=== PATIENT | male | born 1955 | race Caucasian/White ===

== ENCOUNTER → 2016-07-07 | Day surgery (SDC) | payer MEDICARE, OTHER ==
--- NOTE | 2016-06-28 23:44 | HP ---
PREOPERATIVE HISTORY AND PHYSICAL: DATE OF SURGERY/ADMISSION: 07/07/16 DATE OF OFFICE VISIT: 06/28/16 ATTENDING SURGEON: Bettina Posada MD PROCEDURE: Left thumb trigger finger release. CHIEF COMPLAINT: Left thumb triggering. HISTORY OF PRESENT ILLNESS: This is a 61-year-old male who is complaining of catching and clicking and pain in the left thumb. It started over a year ago; however, it has been worsening over the past few weeks. It is bothersome enough that he is not interested in trying a cortisone injection. He would like to proceed with surgical intervention at this time for resolution of the problem. PAST MEDICAL HISTORY: 1. Hypertension. 2. GERD. 3. Hyperlipidemia. 4. Chronic back pain. 5. Diabetes. PAST SURGICAL HISTORY: 1. Abdominal surgery. 2. Back surgery, laminectomy x2. 3. Right hip surgery x3 including a total hip arthroplasty. 4. Hernia surgery. 5. Melanoma removed. 6. Spine stimulator placed in 2015. CURRENT MEDICATIONS: 1. Amlodipine besylate 5 mg daily. 2. Atenolol 50 mg daily. 3. Duloxetine HCl 30 mg daily. 4. Metaxalone 800 mg 1 tab 3 times a day p.r.n. 5. Omeprazole 20 mg daily. 6. Gemfibrozil 600 mg b.i.d. 7. Metformin HCl ER 750 mg b.i.d. 8. Glipizide 5 mg b.i.d. 9. Gabapentin 300 mg daily. 10. Tramadol 37.5/325 mg p.r.n. pain. ALLERGIES: MORPHINE causes the patient to have shortness of breath. FAMILY MEDICAL HISTORY: Significant for cancer and arthritis. SOCIAL HISTORY: The patient is disabled from work primarily from his back issues. He denies tobacco use and illicit drug use. He does admit to alcohol use on regular occasion. REVIEW OF SYSTEMS: General: Negative for fevers, chills, or night sweats. No known anesthesia problems. HEENT: Negative for headache, lightheadedness, or syncopal episodes. Integumentary: Negative for abrasions, lesions, or open wounds. Cardiothoracic: Negative for chest pain, palpitations, or edema. Positive for hypertension. Pulmonary: Negative for shortness of breath with exertion, chronic cough, or COPD. GI: Positive for GERD. Negative for nausea , vomiting, diarrhea, or constipation. : Negative for nocturia, urinary frequency, urgency, history of UTIs, or kidney problems. Musculoskeletal: Positive for chronic back pain and current complaint. Neurological: Negative for paresthesias, numbness, history of seizures, stroke, or epilepsy. Endocrine : Positive for diabetes. Negative for thyroid issues. Hematologic: Negative for easy bruising, anemia, excessive bleeding, or history of DVT. Infectious Disease: Negative for MRSA, hepatitis C, or HIV. PHYSICAL EXAMINATION GENERAL: A well-developed, well-nourished, 61-year-old male, in no acute distress. VITAL SIGNS: Height 5 feet 10 inches, weight 234 pounds, pulse rate 78, and blood pressure 148/88. HEENT: Normocephalic, atraumatic. Pupils are equal, round and reactive to light and accommodation. Extraocular movements are intact. Throat is clear. NECK: Supple. No palpable lymph nodes. PULMONARY: Lungs are clear to auscultation bilaterally. No wheezes, rales, or rhonchi. CARDIOTHORACIC: Regular rate and rhythm. S1, S2. No murmurs, rubs, or gallops. No edema. ABDOMEN: Positive bowel sounds, soft, and nontender. NEUROLOGIC: Alert and oriented x3. Cranial nerves II through XII are intact. Sensation is intact to light touch. MUSCULOSKELETAL: On exam of his left upper extremity and thumb, he has tenderness to palpation at the A1 neida with a palpable nodule, clicking with flexion. Neurovascular function in intact. IMPRESSION: Left thumb trigger finger. PLAN: The patient is scheduled to undergo a left thumb trigger finger release with Dr. Posada on 07/07/16. He will return to the office in 10 to 14 days for postop for followup and suture removal. He has a supply of tramadol at home, which he will plan on using for postoperative pain management. WHIT COREAS [id number]/[facility] #: [id number] MTDD
[~2016-07-07] MED LIST: Acetaminophen TAB* 325 MG PO PRN; Buffered Lidocaine 1% SYR 3ML* 3 ML/SYR SYRINGE INTRADERM ONE; Buffered Lidocaine 1% SYR 3ML* 3 ML/SYR SYRINGE ONE; Ketorolac INJ* 30 MG/ML 1 ML VIAL ONE; Lidocaine 1% INJ* 10 MG/ML 30 ML SDV ONE; Lidocaine 2% PF * 5 ML VIAL ONE; Midazolam* 1 MG/ML 2 ML VIAL (2 MG) ONE; Ondansetron INJ* 2 MG/ML VIAL IV PRN; PROCHLORPERAZINE INJ 5 MG/ML 2 ML VIAL IV PRN; Propofol* 10 MG/ML 20 ML BTL IV PUSH ONE; fentaNYL* 50 MCG/ML 2 ML VIAL (100 MCG VIAL) ONE
[2016-07-07 11:02] VITALS: BP 120/78
--- NOTE | 2016-07-08 02:17 | OP ---
CC: Bettina Posada MD OPERATIVE NOTE: DATE OF OPERATION: 07/07/16 DATE OF : 57 SURGEON: Bettina Posada MD SLEEP LAB TECHNOLOGIST: WHIT Villalobos ANESTHESIA: Local MAC. PRE-OP DIAGNOSIS: Left trigger thumb. POST-OP DIAGNOSIS: Left trigger thumb. OPERATIVE PROCEDURE: Left trigger thumb release. ESTIMATED BLOOD LOSS: Zero. TOURNIQUET TIME: About 10 minutes. INDICATIONS: Otis is a 61-year-old man with locking and triggering of his left thumb. He presen ts for trigger thumb release. DESCRIPTION OF PROCEDURE: The patient was brought to the operating room, was given a sedation anest hetic and a local infiltration with 10 cc of 1% plain lidocaine at the MP flexion crease of his left thumb. The skin of his left upper extremity was prepped and draped in the usual sterile fashion. The hand and forearm were exsanguinated and the tourniquet elevated to 250 mmHg. A transverse incis ion was made centered over the A1 neida of the left thumb. We dissected bluntly through the subcut aneous tissue. The digital neurovascular bundles were retracted and the A1 neida was incised, comp letely releasing the flexor tendon which had a mild abrasion. The wound was irrigated and the skin edges reapproximated with 4-0 nylon suture. The wound was dressed with Xeroform, 4x4, Webril and an Brett wrap. The patient tolerated the procedure well and was brought to the recovery room in good co ndition. [id number]/[facility] #: [id number]
== END | disposition home or self-care (01) ==
LOC: OREAST 08:50
PROVIDERS: ATTEND Orthopaedic Surgery
PROC: 0LN80ZZ Release Left Hand Tendon, Open Approach (ICD-10-PCS; principal; 2016-07-07 10:00)
DX: M65.312 Trigger thumb, left thumb (principal); I10 Essential (primary) hypertension; K21.9 Gastro-esophageal reflux disease without esophagitis; Z85.820 Personal history of malignant melanoma of skin; Z79.84 Long term (current) use of oral hypoglycemic drugs; Z88.5 Allergy status to narcotic agent; E11.9 Type 2 diabetes mellitus without complications; E78.5 Hyperlipidemia, unspecified
CPT/HCPCS: J1885; J2250; J2704; J3010

== ENCOUNTER 2016-08-21 09:35 | Day surgery (SDC) | payer MEDICARE, OTHER ==
[~2016-08-21 09:35] MED LIST changes: -Acetaminophen TAB* 325 MG PO PRN; -Buffered Lidocaine 1% SYR 3ML* 3 ML/SYR SYRINGE ONE; -Ketorolac INJ* 30 MG/ML 1 ML VIAL ONE; -Lidocaine 1% INJ* 10 MG/ML 30 ML SDV ONE; -Lidocaine 2% PF * 5 ML VIAL ONE; -Ondansetron INJ* 2 MG/ML VIAL IV PRN; -PROCHLORPERAZINE INJ 5 MG/ML 2 ML VIAL IV PRN; -Propofol* 10 MG/ML 20 ML BTL IV PUSH ONE
[2016-08-21] MEDS ORDERED: ceFAZolin 2 GM PREMIX (*) 2 GM/50 ML BAG IVPB ONE (09:56)
[2016-08-21] MEDS ORDERED: Ketorolac INJ* 30 MG/ML 1 ML VIAL ONE (11:09)
[2016-08-21] MEDS ORDERED: Bupivacaine 0.5% W/EPI SDV* 30 ML VIAL ONE (12:10)
[2016-08-21] MEDS ORDERED: Bupivacaine 0.25% SDV* 30 ML ONE (12:32)
[2016-08-21] MEDS ORDERED: Bupivacaine 0.25% EPI 200,000* 30 ML SDV ONE (12:32)
[2016-08-21] MEDS ORDERED: Ondansetron INJ* 2 MG/ML VIAL ONE (13:06)
[2016-08-21] MEDS ORDERED: Propofol* 10 MG/ML 20 ML BTL IV PUSH ONE (13:06)
[2016-08-21] MEDS ORDERED: Lidocaine 2% PF * 5 ML VIAL ONE (13:06)
[2016-08-21] MEDS ORDERED: Succinylcholine* 20 MG/ML 10 ML VIAL ONE (13:06)
[2016-08-21] MEDS ORDERED: Dexamethasone IV* 4 MG/ML 1 ML (4 MG) ONE (13:06)
[2016-08-21] MEDS ORDERED: fentaNYL* 50 MCG/ML 2 ML VIAL (100 MCG VIAL) ONE (13:11)
[2016-08-21] MEDS ORDERED: HYDROmorphone INJ* 1 MG/ML CARPUJECT SYRINGE IV PRN (13:42)
[2016-08-21] MEDS ORDERED: fentaNYL* 50 MCG/ML 2 ML VIAL (100 MCG VIAL) IV PRN (13:42)
[2016-08-21] MEDS ORDERED: EPHEDrine (Pressors)* 50 MG/ML VIAL ONE (15:33)
[2016-08-21 18:17] VITALS: BP 133/78
--- NOTE | 2016-08-25 22:31 | OP ---
CC: PCP OPERATIVE REPORT: DATE OF OPERATION: 08/21/16 DATE OF : 57 SURGEON: Andrew Stauffer MD PUPPY WALKER: WHIT Morales ANESTHESIOLOGIST: Dr. Foster. PRE-OP DIAGNOSES: Left shoulder rotator cuff tear of the supraspinatus tendon, possible tear of the subscapularis tendon, biceps instability with tearing and impingement. POST-OP DIAGNOSES: Left shoulder rotator cuff high-grade partial thickness tear of the supraspinatus tendon, possible tear of the subscapularis tendon, biceps instability with tearing and impingement. OPERATIVE PROCEDURE: 1. Left shoulder arthroscopic rotator cuff repair in double-row fashion of supraspinatus tendon. 2. Extensive glenohumeral debridement including chondroplasty. 3. Subacromial decompression with acromioplasty. 4. Open repair of the subscapularis. 5. Open biceps tenodesis. A 22 modifier due to not only body habitus with morbid obesity and positioning of the patient, but the fact this is an extensive case requiring both an open and arthroscopic repair taking longer than typical time for repair. Implants: 5 healicoil, 3 multifix anchors by casey and nephew INDICATIONS: Otis Hidalgo is a 61-year-old male with multiple medical problems who presents with left shoulder pain that happened after a fall and a dislocation of his shoulder. He states that it was out of joint for a number of days before it went back in. He has persistent pain. He has failed conservative management. He had an MRI that demonstrated a tear of the subscapularis with a tear of the supraspinatus tendon as well biceps subluxation. After extensive discussion of risks and benefits of surgery, he has elected to proceed with operative treatment. The patient does have a chronic pain history and was supposed to get clearance and recommendations for what pain medications he could tolerate by his primary care doctor at his pain clinic. After undergoing medical risk assessment, he elected to proceed with surgery. Risks and benefits were discussed at length included but not limited to bleeding, infection, damage to nerves, vessels, surrounding structures, persistent pain, stiffness, need for further surgery, failure of the repair, worsening arthritis, risk of DVT, risk of anesthesia, and incomplete relief of symptoms. He has elected to proceed. DESCRIPTION OF PROCEDURE: The patient was greeted in the preoperative area by the attending surgeon. Correct extremity was marked and consent was confirmed. The patient was brought back to the operating suite where he underwent interscalene nerve block which he tolerated without difficulty. He then underwent general anesthesia endotracheal intubation which he tolerated quite well. The patient was then placed in the right lateral decubitus position with an axillary roll. All bony prominences were padded. His left arm was then suspended from the traction frame with 10 pounds of traction. The left shoulder was then prepped and draped in the usual sterile fashion beginning with chlorhexidine soap and alcohol wipe and a final prep with ChloraPrep. After appropriate surgical pause indicating side, site, procedure, administration of antibiotics, a standard posterolateral portal was made sharply with 11 blade and a scope was introduced into the joint and the joint was examined. There were grade 0 to 1 changes in the humeral head, grade 1 to 2 changes of unstable flaps of the glenoid. The anterior posterior labrum had mild fraying. The inferior recess was intact but there was abundant erythema and synovitis in the joint. The biceps was shredded and displaced. There was an evidence of near full thickness tear of the subscapularis involving greater than 50% of the footprint on the articular side. The undersurface of the supraspinatus tendon had high-grade partial thickness tearing. There was evidence that the supraspinatus tendon was torn fully at the most anterior insertion. The anterior portal was made in outside-in fashion. The biceps was taken through range of motion and it was then tenotomized. The stump was debrided back. The anterior posterior labrum was debrided back. A small chondroplasty was done of the glenoid to remove the unstable flap. The subscap was repaired by removing adhesions and attachments to the supraspinatus tendon. This was then mobilized and felt to be too large a tear to be fixed arthroscopically. After the intraarticular portion was completed, attention was directed to the subacromial space. The scope was placed in the subacromial space. There was abundant bursa that was present. The lateral port was made in an outside-in fashion. The shaver was used to debride this back to expose the undersurface of the acromion which had a moderate-sized spur. This was then skeletonized using the electrocautery device. A small bur was then used to do an acromioplasty. All loose debris was removed from the shoulder. The rotator cuff appeared to be intact and in good condition, although very torn at the very anterior aspect; however, this was probed and found to be quite thin. Therefore, decision was made to repair this back. The detachment was completed using an 11 blade. The edges of the rotator cuff were debrided back using a shaving device. The greater tuberosity was prepared using the rasp, the shaver , and the electrocautery device. Once this was prepared, two anchors were placed in the medial footprint. These were then passed through the tendon in a horizontal mattress configuration, which then underwent arthroscopic knot tying. Once this was secured, these were then passed through a knotless anchor for a lateral row fixation. This allowed for good repair as well as compression of the footprint. The final images were obtained and all fluid and debris were removed from the shoulder. The wounds were then closed with 3-0 nylon. Provisional dressings were applied. All sterile drapes and everything was removed and the patient was then placed in the supine position and carefully positioned so that the open portion of the surgery could be done. The shoulder was then reprepped and redraped while he was in supine position with towels placed under the scapula. After miniature surgical pause indicating side, site, procedure administration of antibiotics, the deltopectoral incision was made using a 15 blade, the soft tissues were carefully dissected. Care was taken to preserve this with hemostasis. The patient was quite large so the dissection was meticulously done. The deltopectoral groove was identified by identifying the cephalic vein. The vein was then taken laterally to expose the clavipectoral fascia. This was then sharply incised. The lateral aspect of the short head of the biceps was identified and the fascia was released to help mobilize the subscapularis tendon. Blunt dissection was then done under the conjoint tendon to allow for freeing of the adhesions of the subscap anteriorly. Curved Wiley's and blunt dissection were then used to bluntly dissect away the deltoid adhesions. Curved Hohmann retractor was placed above the coracoid as well as to retract the deltoid. This helped expose the subscap. The biceps groove was identified. This was then incised and followed up into the line to where the biceps entered the joint. Again, the biceps appears to have been tenotomized in the previous portion of the case. The subscap was identified. This was then carefully, full thickness released using electrocautery device which exposed the lesser tuberosity. Once the subscap was fully released, it was then carefully mobilized to allow for appropriate episcopalian of the tension. The lesser tuberosity was prepared using a rasp and to allow for irritated footprint. Rongeur was also used to prepare this. After this, three anchors were placed in the medial row. These were 4.75 Healicoil anchors. These were then passed to the tissue in an horizontal mattress configuration. These were then tied down. One limb from each suture was then passed through two separate footprint anchors that were placed along the bicipital groove for lateral row fixation. The remaining sutures were then passed through the biceps tendon to allow for biceps tenodesis that was tenodesed to the anchors. The excess stump was removed. The range of motion was gently assessed at this point. The wound was copiously irrigated with sterile saline. The deltopectoral interval was then closed with #2 Ti-Cron in interrupted fashion in case the patient ever needs surgery down the road. The skin was closed in layers with 2- 0 Vicryl and 3-0 Monocryl in an interrupted fashion. The wound was carefully injected with about 20 cc of 0.25% Marcaine distal on the incision. The wounds were then redressed and Cryo/Cuff was applied as well as and UltraSling. He was awoken from anesthesia and transferred to PACU in stable condition. POSTOPERATIVE PLAN: He will be nonweightbearing. He will have no external rotation for 8 weeks. He will be allowed to work on elbow, hand, and wrist range of motion as well as pendulum exercises. He will be discharged on pain medication with specifically Tylenol No.3 as well as antibiotics. DVT prophylaxis was deferred due to no previous personal or family history of DVT. I will see the patient back in 10 to 14 days. He will consult his pain physician for post operative pain control more complex than tylenol #3. [id number]/[facility] #: [id number] ROSA
== END 2016-08-21 18:18 | disposition home or self-care (01) ==
LOC: OREAST 09:35
PROVIDERS: ATTEND Orthopaedic Surgery
DX: S46.012A Strain of muscle(s) and tendon(s) of the rotator cuff of left shoulder, initial encounter (principal); M75.42 Impingement syndrome of left shoulder; I10 Essential (primary) hypertension; E11.9 Type 2 diabetes mellitus without complications; W19.XXXA Unspecified fall, initial encounter; Y92.9 Unspecified place or not applicable; E66.01 Morbid (severe) obesity due to excess calories
CPT/HCPCS: 88304; C1713; J0330; J0690; J1100; J1885; J2250; J2405; J2704; J3010

== ENCOUNTER → 2018-08-19 09:38 | Day surgery (SDC) | payer MEDICARE, OTHER ==
[~2018-08-19 09:38] MED LIST changes: +Acetaminophen TAB* 325 MG ONE; +Acetaminophen TAB* 325 MG PO PRN; -Buffered Lidocaine 1% SYR 3ML* 3 ML/SYR SYRINGE INTRADERM ONE; +Buffered Lidocaine 1% SYRIN* 1 ML/SYRINGE INTRADERM ONE; +Bupivacaine 0.5%* 50 ML VIAL ONE; +Dexamethasone IV* 4 MG/ML 1 ML (4 MG) ONE; +DiMENhydriNATE IV* 50 MG/ML VIAL IV PUSH PRN; +Famotidine IV* 10 MG/ML 2 ML (20 mg) IV ONE; +Famotidine IV* 10 MG/ML 2 ML (20 mg) ONE; +Ketorolac INJ* 30 MG/ML 1 ML VIAL ONE; +Lactated Ringers 1000 ML Bag* 1,000 ML IV SCH; +Lidocaine 2% PF * 5 ML VIAL ONE; +Midazolam* 1 MG/ML 5 ML VIAL (5 MG) ONE; +Naloxone* 0.4 MG/ML 1 ML VIAL IV PRN; +Ondansetron INJ* 2 MG/ML VIAL ONE; +Propofol* 10 MG/ML 20 ML BTL ONE; +ceFAZolin 2 GM PREMIX in ORs 2 GM/50 ML BAG IVPB ONE
[2018-08-19 15:18] VITALS: BP 150/85
--- NOTE | 2018-08-19 21:58 | OP ---
DATE OF OPERATION: 08/19/18 - [facility] DATE OF : 57 SURGEON: Dr. Mauri Arias. REGIONAL INTERMODAL TRUCK DRIVER: WHIT Villalobos. An assistant general manager was needed for the entirety of the procedure to aid in positioning of the arm and retraction. ANESTHESIOLOGIST: Dr. Cortez. ANESTHESIA: General. PRE-OP DIAGNOSES: 1. 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 2. Mild right thumb carpometacarpal degenerative joint disease. 3. Right de Quervain disease. POST-OP DIAGNOSES: 1. 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 2. Mild right thumb carpometacarpal degenerative joint disease. 3. Right de Quervain disease. OPERATIVE PROCEDURE: 1. Right thumb carpometacarpal arthroplasty with trapeziectomy. 2. Distally based split flexor carpi radialis tendon transfer for thumb suspension and tendon interposition. 3. Right partial trapezoidectomy with AlloDerm soft tissue interposition. 4. Right de Quervain release. ESTIMATED BLOOD LOSS: 5 mL. COMPLICATIONS: None. FINDINGS: See above and below. DESCRIPTION OF PROCEDURE: Otis was seen in the preoperative holding area. The correct side, site, and procedure were identified. We came back to the operating room where the arm was prepped and draped in the usual fashion and a time-out was performed. I first made a 1 to 2 cm transverse incision just proximal to the radial styloid. Dissection was carried down and a full thickness flap was bluntly raised off of the first dorsal compartment tendon sheath. The first dorsal compartment tendon sheath was incised along its dorsal margin in line with the tendons. The release was taken through all the way past the radial styloid until the tendon sheath was fully decompressed. There was just a bit of tenosynovitis. This was excised. I checked for an accessory compartment, he did have one. The septum was excised in its entirety. The wound was then irrigated out and closed with 4-0 Monocryl suture. I then made a 2 to 3 cm incision over the dorsal radial thumb base. Dissection was carried down longitudinally to preserve the traversing sensory nerves. The radial artery was mobilized and retracted out of the way. I then raised subperiosteal and capsular flaps to expose the entirety of the trapezium. I released the soft tissue around the margins of trapezium and then the trapezium was excised in its entirety with the rongeur. The FCR tendon was preserved in the base of the wound. There was degenerative changes on the base of the thumb metacarpal and there was also full-thickness cartilage loss on the distal pole of the scaphoid. Thee was full-thickness cartilage loss in the scaphotrapezoid articulation. I therefore used my osteotomes and excised a wafer of trapezoid. After the partial trapezoidectomy had been performed, the wound was irrigated out. I then used sequentially larger drill bits to create a bone tunnel from the dorsal radial thumb metacarpal base exiting out the volar ulnar articular surface at the base of the second metacarpal. I then made a 1 cm transverse incision over the distal FCR tendon. The tendon sheath was released there. I made a second transverse incision about 6 cm proximal to that and another proximal to those two. The tendon sheath was released along the entire course of the tendon. The tendon was split longitudinally in the distal wound and a 26 gauge wire was placed in the split. A Jes clamp was then used to pull the wire back into the more proximal wound sequentially releasing half of the tendon out of the musculotendinous junction. The free tendon tail was pulled down into the distal wound. The end of it was secured with 2-0 Ethibond suture to prevent tendon fraying. Two 26- gauge wires were then used to pass the free tendon tail down into the thumb base wound. The split of the tendon was carried out all the way to the base of the second metacarpal. I then took my AlloDerm allograft and I folded this over to get the appropriate thickness and I cut it to size. I then secured in the edges of the graft with multiple 3-0 Ethibond sutures. I then pulled traction on the second ray and on the thumb while I placed my allograft as an interposition between the base of the trapezoid and the distal pole of the scaphoid. The traction was released and the allograft was nicely compressed at the site of the partial trapezoidectomy. I then used my 26-gauge wire to pass my free tendon tail through the bone tunnel and then back around the intact limb of the FCR and then appropriate tension was set as all three limbs of the tendon transfer was secured. I first sew in all three limbs of the tendon transfer together and the second 2 figure- of-eight 3-0 Ethibond suture sewing intact limb to intact limb. The remainder of the tendon tail was rolled up as a ball and docked as an additional interposition between the base of the metacarpal and the distal pole of the scaphoid. The capsule was then closed with 3-0 Vicryl sutures. The wounds were irrigated out. Skin was closed with 4-0 nylon suture. The wounds were infiltrated with 0.5% Marcaine all around the operative areas. The wounds were dressed with Xeroform, 4x4s, sterile Webril, and then a thumb spica splint with the IP joint free was applied. Tourniquet was deflated. The hand pinked up immediately. He was taken to the recovery room in stable condition. [id number]/[facility] #: [id number] ROSA
== END | disposition home or self-care (01) ==
LOC: OR 09:38
PROVIDERS: ATTEND Orthopaedic Surgery Hand Surgery
DX: M19.031 Primary osteoarthritis, right wrist (principal); M65.4 Radial styloid tenosynovitis [de Quervain]; M18.11 Unilateral primary osteoarthritis of first carpometacarpal joint, right hand; E11.9 Type 2 diabetes mellitus without complications; Z79.84 Long term (current) use of oral hypoglycemic drugs; I10 Essential (primary) hypertension
CPT/HCPCS: A9270-GY; J0690; J1100; J1885; J2250; J2405; J2704; J3010; Q4116

== ENCOUNTER → 2019-08-11 06:08 | Day surgery (SDC) | payer MEDICARE, OTHER ==
[~2019-08-11 06:08] MED LIST changes: +Acetaminophen IV 1GM/100ML * 100 ML ONE; -Acetaminophen TAB* 325 MG ONE; -Acetaminophen TAB* 325 MG PO PRN; +Bupivacaine 0.25% SDV* 30 ML ONE; -Bupivacaine 0.5%* 50 ML VIAL ONE; -Dexamethasone IV* 4 MG/ML 1 ML (4 MG) ONE; +DiMENhydriNATE IV* 50 MG/ML VIAL IV PUSH ONE; -DiMENhydriNATE IV* 50 MG/ML VIAL IV PUSH PRN; +DiMENhydriNATE IV* 50 MG/ML VIAL ONE; +HYDROmorphone INJ1* 1 MG/ML SYRINGE ONE; +KETAMINE HCL* 50 MG/ML 10 ML VIAL ONE; -Midazolam* 1 MG/ML 2 ML VIAL (2 MG) ONE; -Ondansetron INJ* 2 MG/ML VIAL ONE; +Ondansetron ODT TAB* 4 MG ONE; +Ondansetron ODT TAB* 4 MG PO ONE; +PROCHLORPERAZINE INJ 5 MG/ML 2 ML VIAL IV PRN; -ceFAZolin 2 GM PREMIX in ORs 2 GM/50 ML BAG IVPB ONE; +ceFAZolin 2 GM PREMIX in ORs 2 GM/50 ML BAG ONE; +fentaNYL* 50 MCG/ML 2 ML VIAL (100 MCG VIAL) IV PRN; +hydrALAZINE IV* 20 MG/ML VIAL ONE; +oxyCODONE TAB* 5 MG TAB PO PRN
[2019-08-11] MEDS: HYDROmorphone INJ1* 1 MG/ML SYRINGE IV PRN ×2 (10:30→10:35)
[2019-08-11 11:36] VITALS: BP 152/80
--- NOTE | 2019-08-12 04:44 | OP ---
DATE OF OPERATION: 08/11/19 [facility] DATE OF : 57 SURGEON: Mauri Arias MD. SUPERVISOR TELLERS: WHIT Carroll. An export sales assistant was needed for the entirety of the procedure to aid in positioning of the arm and retraction. ANESTHESIOLOGIST: Dr. Corona. ANESTHESIA: General. PRE-OP DIAGNOSES: 1. Left thumb stage III basal joint arthritis. 2. Left wrist de Quervain tendinitis. 3. Left trigger thumb. POST-OP DIAGNOSES: 1. Left thumb stage III basal joint arthritis. 2. Left wrist de Quervain tendinitis. 3. Left trigger thumb. OPERATIVE PROCEDURE: 1. Left thumb carpometacarpal arthroplasty with trapeziectomy. 2. Left distally based split flexor carpi radialis tendon transfer for thumb suspension and tendon interposition. 3. Left wrist de Quervain release. 4. Left trigger thumb release. ESTIMATED BLOOD LOSS: 2 mL. COMPLICATIONS: None. FINDINGS: See above and below. DESCRIPTION OF PROCEDURE: Mr. Hidalgo was seen in the preoperative holding area. The correct site, side and procedures were identified. We came back to the operating room. The arm was prepped and draped in the usual fashion and time-out was performed. The arm was exsanguinated with the Esmarch and the tourniquet was inflated. I first made a 2-cm transverse incision just over the first dorsal compartment tendon sheath and just proximal to the radial styloid. Full-thickness flaps were bluntly raised off the tendon sheath. Ragnell retractors were placed. There was a lot of inflammation. The tendon sheath was released along its dorsal margin. There was an accessory compartment, and this was released with a 15 blade and then the scissors were used to excise the septum. Once I had completed the release distally and proximally, we irrigated out the wound and skin was closed with 4-0 Monocryl suture. I then made a 1-cm transverse incision in the MCP joint flexion crease. Full- thickness flaps were raised off the tendon sheath. Ragnell retractors were placed. The A1 neida was incised longitudinally. The release was completed distally and proximally. At this point, everything was looking very good. It was a very severe trigger thumb. There was a lot of inflammation and a lot of fraying to the tendon. Additionally, there was a cyst that was coming off the tendon sheath. I irrigated out the wound. Skin was closed with 4-0 nylon suture. I then made a 2- to 3-cm incision over the dorsal dorsoradial thumb CMC joint. Dissection was carried down longitudinally to preserve the sensory nerves. The radial artery was mobilized and retracted out of the way. Subperiosteal and capsular flaps were raised to expose the trapezium. The trapezium was released off its soft tissue around the periphery. It was then excised in piecemeal fashion. The scaphotrapezoid joint looked okay. I used sequentially larger drill bits to make a bone tunnel from the dorsal radial thumb metacarpal base exiting out the volar ulnar articular surface near the insertion of the FCR tendon. At this point, that was all looking good, so I turned my attention to the tendon transfer. I made three 1-cm incisions over the FCR tendon, the first 1 cm proximal to the wrist flexion crease and the next two about 7 or 8 cm proximal to the last. The sheath was released. The tendon was pulled up out of the wound distally and incised longitudinally and a 26-gauge wire was passed into the tendon. I used a Jes clamp to pull the wire out of the proximal wound, releasing half the tendon at the musculotendinous junction. The free tail of the tendon was then transferred down into the metacarpal base wound where it was taken through the bone tunnel, back around the intact limb and then the tendon transfer was secured with maximal tension with three figure-of- eight 3-0 Ethibond sutures, the first sewing all three limbs of the tendon transfer together, the last two sewing intact limb to intact limb. The remainder of the tendon was rolled up as a ball and placed this in a neutral position proximal to the metacarpal base. The wound was then irrigated out copiously. The capsule was closed with 4-0 Vicryl suture. Skin was closed with 4-0 nylon suture. 0.25% Marcaine was infiltrated all around the operative site. The wounds were dressed and thumb spica splint with the IP joint free was applied. He was taken to the recovery room in stable condition. [id number] #: [id number] [facility]
== END | disposition home or self-care (01) ==
LOC: OR 06:08
PROVIDERS: ATTEND Orthopaedic Surgery Hand Surgery
DX: M18.12 Unilateral primary osteoarthritis of first carpometacarpal joint, left hand (principal); M65.4 Radial styloid tenosynovitis [de Quervain]; I10 Essential (primary) hypertension; E78.00 Pure hypercholesterolemia, unspecified; M19.90 Unspecified osteoarthritis, unspecified site; E11.9 Type 2 diabetes mellitus without complications; Z79.84 Long term (current) use of oral hypoglycemic drugs; M65.312 Trigger thumb, left thumb
CPT/HCPCS: 88304; 88311; A9270-GY; J0360; J0690; J1170; J1240; J1885; J2250; J2704; J3010; J3490

== ENCOUNTER 2021-05-15 13:04 | Inpatient (IN) ==
[2021-05-15] MEDS ORDERED: NS 0.9% 1000 ml BAG 1,000 ML IV ONE (13:25)
[2021-05-15 13:40] LABS: INR 1.16 (0.86-1.15)
[2021-05-15] MEDS ORDERED: Iodixanol (CONTRAST) 320 MG/ML 100 ML SDV IV ONE (13:46)
[2021-05-15 13:54] LABS: ABS Basophils 0.1 10^3/ul (0-0.2); ABS Eosinophils 0.2 10^3/ul (0-0.6); ABS Lymphocytes 1.5 10^3/ul (1.0-4.8); ABS Monocytes 0.5 10^3/ul (0-0.8); ABS Neutrophils 3.6 10^3/ul (1.5-7.7); Eosinophil % 3.2 %; Hematocrit 43 % (42-52); Hemoglobin 15.3 g/dL (14.0-18.0); Lymphocyte % 25.8 %; Mean Corpuscular HGB Conc 35 g/dL (31-36); Mean Corpuscular Hemoglobin 32 pg (27-31); Mean Corpuscular Volume 90 fL (80-94); Mean Platelet Volume 7.8 fL (7.4-10.4); Platelet Count 287 10^3/uL (150-450); Red Blood Count 4.83 10^6 /uL (4.18-5.48); Red Cell Distribution Width 13 % (10-15); White Blood Count 5.9 10^3/uL (3.5-10.8)
[2021-05-15 14:06] LABS: ALT 28 U/L (7-52); AST 31 U/L (13-39); Albumin 4.4 g/dL (3.2-5.2); Albumin/Globulin Ratio 1.4 (1-3); Alkaline Phosphatase 95 U/L (35-149); Anion Gap 10 mmol/L (2-11); Blood Urea Nitrogen 21 mg/dL (6-24); CO2 Carbon Dioxide 26 mmol/L (22-32); Calcium 10.7 mg/dL (8.6-10.3); Chloride 98 mmol/L (101-111); Globulin 3.1 g/dL (2-4); Glucose 107 mg/dL (70-100); Potassium 3.5 mmol/L (3.5-5.0); Sodium 134 mmol/L (135-145); Total Protein 7.5 g/dL (6.4-8.9)
[2021-05-15 14:28] LABS: Troponin I 0.01 ng/mL (<0.03)
[2021-05-15 14:40] LABS: Activated Partial Thrombo Time 36.6 seconds (26.0-38.0)
[2021-05-15 14:49] LABS: Cholesterol 180 mg/dL; HDL Cholesterol 26.8 mg/dL; LDL Cholesterol 99 mg/dL; Triglycerides 272 mg/dL
[2021-05-15] MEDS ORDERED: Ondansetron 4 mg VIAL 2 MG/ML 2 ml VIAL IV PRN (21:26)
[2021-05-15 21:58] LABS: Rapid COVID-19 Molecular Undetected (Undetected)
[2021-05-15] MEDS ORDERED: Dextrose 50% Syringe 50 ml 25 GM/50 ML SYRINGE IV PUSH PRN (23:07)
[2021-05-16] MEDS: Enoxaparin 40 MG/0.4 ML SYR SUBCUT SCH ×2 (06:25→21:35)
[2021-05-16 06:38] LABS: ABS Eosinophils 0.2 10^3/ul (0-0.6); ABS Lymphocytes 2.1 10^3/ul (1.0-4.8); ABS Monocytes 0.6 10^3/ul (0-0.8); ABS Neutrophils 2.9 10^3/ul (1.5-7.7); Eosinophil % 3.7 %; Hematocrit 40 % (42-52); Lymphocyte % 36.3 %; Mean Corpuscular HGB Conc 35 g/dL (31-36); Mean Corpuscular Hemoglobin 32 pg (27-31); Mean Corpuscular Volume 92 fL (80-94); Mean Platelet Volume 7.7 fL (7.4-10.4); Platelet Count 265 10^3/uL (150-450); Red Blood Count 4.36 10^6 /uL (4.18-5.48); Red Cell Distribution Width 13 % (10-15); White Blood Count 5.8 10^3/uL (3.5-10.8)
[2021-05-16 06:56] LABS: Calcium 10.1 mg/dL (8.6-10.3); Potassium 3.8 mmol/L (3.5-5.0)
[2021-05-16] MEDS: Aspirin EC 81 mg TAB.EC (enteric coated) PO SCH (07:41)
[2021-05-16 08:34] LABS: Calcium (PTH Intact) 10.1 mg/dL (8.6-10.3)
[2021-05-16] MEDS: DULoxetine DR 30 mg CAP PO SCH (09:09)
[2021-05-16] MEDS ORDERED: Perflutren Lipid Microsphere 3 ML VIAL ONE (14:09)
[2021-05-16] MEDS ORDERED: Iodixanol (CONTRAST) 320 MG/ML 100 ML SDV IV ONE (17:04)
[2021-05-16 19:30] LABS: Erythrocyte Sed Rate 47 mm/Hr (0-19)
[2021-05-17] MEDS ORDERED: Polyethylene Glycol 3350 17 GM PACKET PO PRN (02:27)
[2021-05-17 08:24] LABS: ABS Eosinophils 0.2 10^3/ul (0-0.6); ABS Lymphocytes 1.5 10^3/ul (1.0-4.8); ABS Monocytes 0.6 10^3/ul (0-0.8); ABS Neutrophils 4.4 10^3/ul (1.5-7.7); Eosinophil % 3.4 %; Hematocrit 40 % (42-52); Hemoglobin 14.1 g/dL (14.0-18.0); Lymphocyte % 22.1 %; Mean Corpuscular HGB Conc 35 g/dL (31-36); Mean Corpuscular Hemoglobin 32 pg (27-31); Mean Corpuscular Volume 91 fL (80-94); Mean Platelet Volume 7.5 fL (7.4-10.4); Platelet Count 258 10^3/uL (150-450); Red Blood Count 4.45 10^6 /uL (4.18-5.48); Red Cell Distribution Width 13 % (10-15); White Blood Count 6.7 10^3/uL (3.5-10.8)
[2021-05-17 08:42] LABS: Albumin 3.8 g/dL (3.2-5.2); Albumin/Globulin Ratio 1.4 (1-3); C Reactive Protein 6.86 mg/L (<8.01); Calcium 9.7 mg/dL (8.6-10.3); Globulin 2.8 g/dL (2-4); Total Bilirubin 0.5 mg/dL (0.2-1.0); Total Protein 6.6 g/dL (6.4-8.9)
[2021-05-17] MEDS: Aspirin EC 81 mg TAB.EC (enteric coated) PO SCH (09:10)
[2021-05-17] MEDS: DULoxetine DR 30 mg CAP PO SCH (09:10)
[2021-05-17 10:11] LABS: Erythrocyte Sed Rate 22 mm/Hr (0-19)
[2021-05-17 10:17] LABS: Potassium 3.8 mmol/L (3.5-5.0)
[2021-05-17 10:56] LABS: Folate 10.44 ng/mL (5.90-24.80)
[2021-05-17] MEDS: Enoxaparin 40 MG/0.4 ML SYR SUBCUT SCH (20:52)
[2021-05-18] MEDS ORDERED: Gemfibrozil 600 mg PO SCH (09:00)
[2021-05-18] MEDS: Aspirin EC 81 mg TAB.EC (enteric coated) PO SCH (10:16)
[2021-05-18] MEDS: DULoxetine DR 30 mg CAP PO SCH (10:16)
[2021-05-18] MEDS ORDERED: Lidocaine 1% w EPI 1:200,000 SDV 30 ML VIAL ONE (12:29)
[2021-05-18] MEDS ORDERED: Bupivacaine 0.25% SDV 30 ML ONE (12:30)
[2021-05-18] MEDS ORDERED: fentaNYL 100 mcg/2 ml 50 MCG/ML VIAL ONE (13:03)
[2021-05-18] MEDS ORDERED: Midazolam 2 mg/2 ml VIAL 1 mg/ml 2 ml VIAL (2 mg) ONE (13:03)
[2021-05-18] MEDS ORDERED: Propofol 10 MG/ML 20 ML BTL ONE (13:03)
[2021-05-18 17:26] LABS: Body Fluid Source Cerebral Spinal
[2021-05-18 17:27] LABS: Body Fluid Appearance Clear; Body Fluid Color Colorless; CSF Tube # 4
[2021-05-18 17:29] LABS: CSF Glucose 72 mg/dL (40-70)
[2021-05-18 17:40] LABS: Body Fluid WBC 0 /mcL
[2021-05-19] MEDS: Aspirin EC 81 mg TAB.EC (enteric coated) PO SCH (07:44)
[2021-05-19] MEDS: DULoxetine DR 30 mg CAP PO SCH (07:44)
[2021-05-19] MEDS ORDERED: Iohexol 350 (CONTRAST) 500 ML MDV IV ONE (08:52)
[2021-05-19] MEDS ORDERED: Iodixanol (CONTRAST) 320 MG/ML 100 ML SDV IV ONE (09:52)
[2021-05-19 10:09] LABS: ABS Eosinophils 0.3 10^3/ul (0-0.6); ABS Lymphocytes 1.7 10^3/ul (1.0-4.8); ABS Monocytes 0.5 10^3/ul (0-0.8); ABS Neutrophils 4.1 10^3/ul (1.5-7.7); Eosinophil % 3.8 %; Hematocrit 42 % (42-52); Hemoglobin 14.3 g/dL (14.0-18.0); Mean Corpuscular HGB Conc 34 g/dL (31-36); Mean Corpuscular Hemoglobin 32 pg (27-31); Mean Corpuscular Volume 92 fL (80-94); Mean Platelet Volume 7.9 fL (7.4-10.4); Platelet Count 272 10^3/uL (150-450); Red Blood Count 4.53 10^6 /uL (4.18-5.48); Red Cell Distribution Width 13 % (10-15); White Blood Count 6.7 10^3/uL (3.5-10.8)
[2021-05-19 10:30] LABS: Calcium 10.1 mg/dL (8.6-10.3); Potassium 3.9 mmol/L (3.5-5.0)
[2021-05-19 10:37] LABS: Albumin 3.1 g/dL (3.4-4.7); Gamma Globulin 0.7 g/dL (0.6-1.6); Total Protein(PEP) 6.1 g/dL (6.3 - 7.9)
[2021-05-19 11:40] VITALS: BP 115/71
[2021-05-22 08:59] LABS: Methylmalonic Acid 0.15 nmol/mL (<=0.40)
== END 2021-05-19 14:39 | disposition home or self-care (01) | DRG 145 ==
LOC: ED 13:04 → EDHOLD 13:04 → MEDTELE 05-16 10:36
PROVIDERS: ADMIT Internal Medicine; ATTEND Internal Medicine